=== PATIENT | female | born 1990 | race American Indian/Alaskan Native ===

== ENCOUNTER 2018-09-02 18:24 | Emergency (ER) | payer MEDICARE ==
[2018-09-02 18:32] VITALS: BP 130/94
[2018-09-02] MEDS ORDERED: IBUPROFEN PO ONE (18:55)
--- NOTE | 2018-09-02 19:05 | Emergency Department Report ---
- General Chief complaint: Laceration/Recheck/Suture Stated complaint: RT NIPPLE/INFECTED/PAIN Time Seen by Provider: 09/02/18 18:34 Source: patient Mode of arrival: Ambulatory Limitations: No Limitations - History of Present Illness Initial comments: This is a 28-year-old female nontoxic, well nourished in appearance, no acute signs of distress presents to the ED with c/o of right nipple pain. Patient stated that she had a nipple ring and yesterday especially pulled her nipple ring and now has pain. Patient denies any swelling, pus or drainage. Patient denies any nausea, vomiting, chest pain, shortness of breathe, fever, chills, headache, or stiff neck. Patient denies any allergies or PMH. MD complaint: lesion -: days(s) (1) Severity: mild Severity scale (0 -10): 8 Quality: aching Consistency: constant Improves with: none Worsens with: none Context: none Associated symptoms: denies other symptoms Treatments Prior to Arrival: none - Related Data Previous Rx's Medication Instructions Recorded Last Taken Type Acetaminophen/Codeine [Tylenol 1 tab PO Q6H PRN #12 tab 09/02/18 Unknown Rx /Codeine # 3 tab] Ibuprofen [Motrin] 600 mg PO Q8H PRN #20 tablet 09/02/18 Unknown Rx Sulfamethoxazole/Trimethoprim 1 each PO BID #14 tablet 09/02/18 Unknown Rx [Bactrim DS TAB] Allergies Allergy/AdvReac Type Severity Reaction Status Date / Time No Known Allergies Allergy Verified 09/02/18 18:27 Abscess Boil HPI - HPI Chief Complaint: Laceration/Recheck/Suture Stated Complaint: RT NIPPLE/INFECTED/PAIN Time Seen by Provider: 09/02/18 18:34 Home Medications: Previous Rx's Medication Instructions Recorded Last Taken Type Acetaminophen/Codeine [Tylenol 1 tab PO Q6H PRN #12 tab 09/02/18 Unknown Rx /Codeine # 3 tab] Ibuprofen [Motrin] 600 mg PO Q8H PRN #20 tablet 09/02/18 Unknown Rx Sulfamethoxazole/Trimethoprim 1 each PO BID #14 tablet 09/02/18 Unknown Rx [Bactrim DS TAB] Allergies/Adverse Reactions: Allergies Allergy/AdvReac Type Severity Reaction Status Date / Time No Known Allergies Allergy Verified 09/02/18 18:27 ED Review of Systems ROS: Stated complaint: RT NIPPLE/INFECTED/PAIN Other details as noted in HPI Constitutional: denies: chills, fever Eyes: denies: eye pain, eye discharge, vision change ENT: denies: ear pain, throat pain Respiratory: denies: cough, shortness of breath, wheezing Cardiovascular: denies: chest pain, palpitations Endocrine: no symptoms reported Gastrointestinal: denies: abdominal pain, nausea, diarrhea Genitourinary: denies: urgency, dysuria, discharge Musculoskeletal: denies: back pain, joint swelling, arthralgia Skin: denies: rash, lesions Neurological: denies: headache, weakness, paresthesias Psychiatric: denies: anxiety, depression Hematological/Lymphatic: denies: easy bleeding, easy bruising ED Past Medical Hx - Past Medical History Previous Medical History?: No - Surgical History Past Surgical History?: No - Social History Smoking Status: Never Smoker Substance Use Type: None - Medications Home Medications: Home Medications Medication Instructions Recorded Confirmed Last Taken Type Acetaminophen/Codeine [Tylenol 1 tab PO Q6H PRN #12 tab 09/02/18 Unknown Rx /Codeine # 3 tab] Ibuprofen [Motrin] 600 mg PO Q8H PRN #20 tablet 09/02/18 Unknown Rx Sulfamethoxazole/Trimethoprim 1 each PO BID #14 tablet 09/02/18 Unknown Rx [Bactrim DS TAB] ED Physical Exam - General Limitations: No Limitations General appearance: alert, in no apparent distress - Head Head exam: Present: atraumatic, normocephalic - Eye Eye exam: Present: normal appearance - Neck Neck exam: Present: normal inspection, full ROM - Extremities Exam Extremities exam: Present: normal inspection, full ROM - Back Exam Back exam: Present: normal inspection, full ROM - Neurological Exam Neurological exam: Present: alert, oriented X3 - Psychiatric Psychiatric exam: Present: normal affect, normal mood - Skin Skin exam: Present: warm, dry, intact, normal color. Absent: rash - Other Other exam information: right nipple tenderness with no surrounding redness, swelling, abscess, pus or drainage. Umesh Bansal RN present during exam. ED Course Vital Signs 09/02/18 18:27 Temperature 97.9 F Pulse Rate 80 Respiratory 16 Rate Blood Pressure 130/94 O2 Sat by Pulse 96 Oximetry - Reevaluation(s) Reevaluation #1: 09/02/18 19:05 Patient is speaking in full sentences with no signs of distress noted. ED Medical Decision Making - Medical Decision Making This is a 28-year-old male that presents with possible cellulitis. Patient is stable and was examined by me. There is no induration, fluctuance. No signs of abscess formation. Patient was instructed to observe symptoms of increased redness or swelling and to return to the ER if this does occur. I will discharge patient with Bactrim. Patient was referred to Follow-up with a primary care doctor in 3-5 days or if symptoms worsen and continue return to emergency room as soon as possible. At time of discharge, the patient does not seem toxic or ill in appearance. No acute signs of distress noted. Patient agrees to discharge treatment plan of care. No further questions noted by the patient. Critical care attestation.: If time is entered above; I have spent that time in minutes in the direct care of this critically ill patient, excluding procedure time. ED Disposition Clinical Impression: Cellulitis Qualifiers: Site of cellulitis: other site Qualified Code(s): L03.818 - Cellulitis of other sites Disposition: DC-01 TO HOME OR SELFCARE Is pt being admited?: No Does the pt Need Aspirin: No Condition: Stable Instructions: Cellulitis (ED) Additional Instructions: Follow-up with a primary care doctor in 3-5 days or if symptoms worsen and continue return to emergency room as soon as possible. Prescriptions: Acetaminophen/Codeine [Tylenol /Codeine # 3 tab] 1 tab PO Q6H PRN #12 tab PRN Reason: Pain , Severe (7-10) Ibuprofen [Motrin] 600 mg PO Q8H PRN #20 tablet PRN Reason: Pain Sulfamethoxazole/Trimethoprim [Bactrim DS TAB] 1 each PO BID #14 tablet Referrals: PRIMARY CARE, [Referring] - 3-5 Days ALEK HUGHES MD [Staff Physician] - 3-5 Days [facility] [Outside] - 3-5 Days Forms: Work/School Release Form(ED)
== END 2018-09-02 19:25 | disposition home or self-care (01) ==
LOC: ED 18:24
DX: N61.0 Mastitis without abscess (principal)
CPT/HCPCS: 99282

== ENCOUNTER 2018-09-18 08:17 | Observation (INO) | payer MEDICARE ==
[2018-09-18] MEDS ORDERED: ZOFRAN IV ONE ×2 (08:46→14:29)
[2018-09-18] MEDS ORDERED: MORPHINE IV ONE ×2 (08:46→10:28)
[2018-09-18 09:09] LABS: Basophils # (Auto) 0.1 K/mm3 (0.0-0.1); Basophils % (Auto) 0.7 % (0.0-1.8); Eosinophils # (Auto) 0.1 K/mm3 (0.0-0.4); Eosinophils % (Auto) 0.9 % (0.0-4.3); Lymphocytes # (Auto) 2.3 K/mm3 (1.2-5.4); Lymphocytes % (Auto) 23.1 % (13.4-35.0); Mean Corpuscular HGB Conc 33 % (30-34); Mean Corpuscular Volume 88 fl (79-97); Monocytes # (Auto) 0.6 K/mm3 (0.0-0.8); Platelet Count 217 K/mm3 (140-440); Red Blood Count 4.42 M/mm3 (3.65-5.03); Red Cell Distribution Width 14.4 % (13.2-15.2)
[2018-09-18 09:25] LABS: Alanine Aminotransferase 13 units/L (7-56); Albumin 4.6 g/dL (3.9-5); BUN/Creatinine Ratio 12; Bilirubin,Direct < 0.2 mg/dL (0-0.2); Blood Urea Nitrogen 11 mg/dL (7-17); Calcium 9.3 mg/dL (8.4-10.2); Hemolysis Index 6
[2018-09-18 10:54] LABS: Bilirubin,Urine NEG (Negative); Blood,Urine SM (Negative); Color,Urine Straw (Yellow); Mucus,Urine FEW /HPF; Protein,Urine <15 mg/dL mg/dL (Negative); Urobilinogen,Urine < 2.0 mg/dL (<2.0); WBC,Urine < 1.0 /HPF (0.0-6.0)
[2018-09-18 10:55] LABS: HCG Qualitative,Urine Negative (Negative)
[2018-09-18] MEDS ORDERED: DILAUDID ONE ×2 (13:03→13:47)
--- NOTE | 2018-09-18 13:05 | Emergency Department Report ---
<ALEK PRABHAKAR M - Last Filed: 09/18/18 15:34> ED Abdominal Pain HPI - General Chief Complaint: Abdominal Pain Stated Complaint: ABDOMINAL PAIN Time Seen by Provider: 09/18/18 08:45 Source: patient Mode of arrival: Ambulatory Limitations: No Limitations - History of Present Illness Initial Comments: 28-year-old female was seen here on 09/06. Please note the patient has 2 medical record numbers and it will not show up on this screen. Please refer to medical record number [id number]. The patient was seen by her edi consultant Dr. Garcia associated with [facility] on the . She was told to continue her control pill, back on this Thursday and stay home from work. She was told that she will have a repeat ultrasound in 4-6 weeks. She was given pain medicine. Patient states that despite the pain medicine she is still hurting. She complains of pain in the left lower quadrant of her abdomen which was previously associated with a 3.5 cm complex hemorrhagic cyst. The pain has not really changed. It is just persistent and the patient is tired of being of pain she states. She does not complain of fever chills or vaginal bleeding or discharge. She's had no vomiting. She does complain of nausea. MD Complaint: abdominal pain -: Gradual, week(s) Location: LLQ Radiation: none Migration to: no migration Severity scale (0 -10): 9 Quality: aching Consistency: intermittent Improves With: nothing Worsens With: nothing Context: other (ovarian cyst) Associated Symptoms: denies other symptoms (except for), nausea - Related Data Previous Rx's Medication Instructions Recorded Last Taken Type Acetaminophen/Codeine [Tylenol 1 tab PO Q6H PRN #12 tab 09/02/18 Unknown Rx /Codeine # 3 tab] Ibuprofen [Motrin] 600 mg PO Q8H PRN #20 tablet 09/02/18 Unknown Rx Sulfamethoxazole/Trimethoprim 1 each PO BID #14 tablet 09/02/18 Unknown Rx [Bactrim DS TAB] Allergies Allergy/AdvReac Type Severity Reaction Status Date / Time No Known Allergies Allergy Verified 09/18/18 08:24 ED Review of Systems Constitutional: denies: chills, fever Eyes: denies: eye pain, eye discharge, vision change ENT: denies: ear pain, throat pain Respiratory: denies: cough, shortness of breath, wheezing Cardiovascular: denies: chest pain, palpitations Endocrine: no symptoms reported Gastrointestinal: as per HPI, abdominal pain. denies: nausea, diarrhea Genitourinary: denies: urgency, dysuria, discharge Musculoskeletal: back pain (patient tells me that she has some back swelling left flank. She does not complain of back pain actually.). denies: joint swelling, arthralgia Skin: denies: rash, lesions Neurological: denies: headache, weakness, paresthesias Psychiatric: denies: anxiety, depression Hematological/Lymphatic: denies: easy bleeding, easy bruising ED Past Medical Hx - Past Medical History Previous Medical History?: No - Surgical History Hx Cholecystectomy: Yes Hx Appendectomy: Yes Additional Surgical History: ovarian cyst removal - Social History Smoking Status: Never Smoker Substance Use Type: None - Medications Home Medications: Home Medications Medication Instructions Recorded Confirmed Last Taken Type Acetaminophen/Codeine [Tylenol 1 tab PO Q6H PRN #12 tab 09/02/18 Unknown Rx /Codeine # 3 tab] Ibuprofen [Motrin] 600 mg PO Q8H PRN #20 tablet 09/02/18 Unknown Rx Sulfamethoxazole/Trimethoprim 1 each PO BID #14 tablet 09/02/18 Unknown Rx [Bactrim DS TAB] ED Physical Exam - General Limitations: No Limitations General appearance: alert, in no apparent distress - Head Head exam: Present: atraumatic, normocephalic - Eye Eye exam: Present: normal appearance - ENT ENT exam: Present: mucous membranes moist - Neck Neck exam: Present: normal inspection. Absent: meningismus - Respiratory Respiratory exam: Present: normal lung sounds bilaterally. Absent: respiratory distress - Cardiovascular Cardiovascular Exam: Present: regular rate, normal rhythm. Absent: systolic murmur, diastolic murmur, rubs, gallop - GI/Abdominal GI/Abdominal exam: Present: soft, tenderness (some discomfort to palpation in the left lower quadrant of the abdomen), normal bowel sounds. Absent: distended, guarding, rebound, rigid, organomegaly, mass, bruit, pulsatile mass, hernia - Extremities Exam Extremities exam: Present: normal inspection - Back Exam Back exam: Present: normal inspection - Neurological Exam Neurological exam: Present: alert, oriented X3, CN II-XII intact. Absent: motor sensory deficit - Psychiatric Psychiatric exam: Present: normal affect, anxious - Skin Skin exam: Present: warm, dry, intact, normal color. Absent: rash ED Course - Reevaluation(s) Reevaluation #1: Patient looked comfortable on reexamination. She rated that she is tired of having pain and that her pain medicine doesn't work. I'm awaiting ultrasound results. Preliminary discussion with the tech revealed no evidence of significant fluid in the pelvis. This would be my principal concern related to her ovarian cyst, i.e. rupture. 09/18/18 13:06 Reevaluation #2: Renal ultrasound showed a solid mass. I am going to proceed with CT of the abdomen and pelvis. Patient also states that she is lost about 8 pounds recently. There is concern for a neoplastic process. 09/18/18 13:44 ED Medical Decision Making - Lab Data Result diagrams: 09/18/18 08:49 09/18/18 08:49 Laboratory Results - last 24 hr 09/18/18 09/18/18 09/18/18 08:49 08:49 08:49 WBC 10.1 RBC 4.42 Hgb 13.0 Hct 39.0 MCV 88 MCH 29 MCHC 33 RDW 14.4 Plt Count 217 Lymph % (Auto) 23.1 [place] % (Auto) 6.0 Eos % (Auto) 0.9 Baso % (Auto) 0.7 Lymph # 2.3 [place] # 0.6 Eos # 0.1 Baso # 0.1 Seg Neutrophils % 69.3 Seg Neutrophils # 7.0 Sodium 136 L Potassium 3.8 Chloride 99.9 Carbon Dioxide 22 Anion Gap 18 BUN 11 Creatinine 0.9 Estimated GFR > 60 BUN/Creatinine Ratio 12 Glucose 94 Calcium 9.3 Magnesium 2.00 Total Bilirubin 0.50 Direct Bilirubin < 0.2 AST 16 ALT 13 Alkaline Phosphatase 46 Total Protein 7.5 Albumin 4.6 Albumin/Globulin Ratio 1.6 HCG, Quant < 2 Urine Color Urine Turbidity Urine pH Ur Specific [place] Urine Protein Urine Glucose (UA) Urine Ketones Urine Blood Urine Nitrite Urine Bilirubin Urine Urobilinogen Ur Leukocyte Esterase Urine WBC (Auto) Urine RBC (Auto) U Epithel Cells (Auto) Urine Mucus Urine HCG, Qual 09/18/18 10:46 WBC RBC Hgb Hct MCV MCH MCHC RDW Plt Count Lymph % (Auto) [place] % (Auto) Eos % (Auto) Baso % (Auto) Lymph # [place] # Eos # Baso # Seg Neutrophils % Seg Neutrophils # Sodium Potassium Chloride Carbon Dioxide Anion Gap BUN Creatinine Estimated GFR BUN/Creatinine Ratio Glucose Calcium Magnesium Total Bilirubin Direct Bilirubin AST ALT Alkaline Phosphatase Total Protein Albumin Albumin/Globulin Ratio HCG, Quant Urine Color Straw Urine Turbidity Clear Urine pH 5.0 Ur Specific [place] 1.003 Urine Protein <15 mg/dl Urine Glucose (UA) Neg Urine Ketones Tr Urine Blood Sm Urine Nitrite Neg Urine Bilirubin Neg Urine Urobilinogen < 2.0 Ur Leukocyte Esterase Neg Urine WBC (Auto) < 1.0 Urine RBC (Auto) 1.0 U Epithel Cells (Auto) 2.0 Urine Mucus Few Urine HCG, Qual Negative - Radiology Data Radiology results: report reviewed Ultrasound no free fluid. CT report is pending. Dr. Willard will check. ED Disposition Clinical Impression: Ovarian mass, left, Intractable abdominal pain, History of endometriosis Disposition: OP ADMIT IP TO THIS HOSP Condition: Good Instructions: Abdominal Pain (ED) Referrals: ANASTASIA SANTIAGO MD [Primary Care Provider] - 3-5 Days <CHUN WILLARD - Last Filed: 09/18/18 17:45> ED Review of Systems ROS: Stated complaint: ABDOMINAL PAIN Other details as noted in HPI ED Course Vital Signs 09/18/18 09/18/18 09/18/18 08:25 14:05 14:07 Temperature 98.3 F 98.7 F Pulse Rate 86 86 Respiratory 18 20 20 Rate Blood Pressure 130/64 Blood Pressure 114/76 [Left] O2 Sat by Pulse 98 100 Oximetry 09/18/18 17:15 Temperature Pulse Rate 86 Respiratory 16 Rate Blood Pressure Blood Pressure 111/64 [Left] O2 Sat by Pulse 99 Oximetry - Reevaluation(s) Reevaluation #3: 09/18/18 17:40 CT scan results reviewed and appreciated. I go back to evaluate the patient. The patient tells me that she's been having lower abdominal pain since Thursday, worsening with intensity. She's been having no fevers or chills, no urinary symptoms and no vaginal bleeding. The patient has been given multiple rounds of pain medication, nausea medication. She is still nauseous and still having a lot of abdominal pain. Her lower abdominal region is fairly tender. She is amenable to having a transvaginal ultrasound performed, and I have contacted covering edi consultant, Dr. K Verpile, covering for the patient's private edi consultant, Dr. Juan Schwartz. She is amenable to admitting the patient to the gynecologic service for pain control, nausea control. This is discussed with the patient, who is amenable to this plan of care. We will admit the patient, and given additional pain medication. I will defer to the inpatient team to follow-up on her repeat transvaginal ultrasound. ED Medical Decision Making - Lab Data Result diagrams: 09/18/18 08:49 09/18/18 08:49 - Radiology Data Radiology results: report reviewed, image reviewed Previous ultrasound report is reviewed and appreciated. CT scan interpretation today shows free fluid dependent in the pelvis, with 2 left adnexal cystic masses, may represent ruptured ovarian cyst, no free air. Critical care attestation.: If time is entered above; I have spent that time in minutes in the direct care of this critically ill patient, excluding procedure time. ED Disposition Is pt being admited?: Yes
--- NOTE | 2018-09-18 13:17 | Ultrasound Report ---
FINAL REPORT EXAM: US PELVIC COMPLETE HISTORY: left lower quadrant pain TECHNIQUE: Transabdominal pelvic ultrasound PRIORS: None. FINDINGS: The uterus measures 5.2 x 1.2 x 3.2 cm. No focal uterine mass seen. Endometrium is 1.2 mm. Neither ovary is visualized. There is no abnormal adnexal mass seen. There no free fluid seen. IMPRESSION: Ovaries not visualized. No significant abnormality seen on transabdominal exam.
[2018-09-18] MEDS ORDERED: DILAUDID IV ONE ×2 (13:20→14:29)
--- NOTE | 2018-09-18 13:20 | Ultrasound Report ---
FINAL REPORT EXAM: US RENAL LT HISTORY: left flank pain TECHNIQUE: Ultrasound of the left kidney. PRIORS: None. FINDINGS: Left kidney measures 8.9 x 4.6 x 4.4 cm. There is a possible solid mass in the mid aspect of the left kidney versus renal lobularity. It measures about 2.5cm. Recommend correlation with CT. There is no hydronephrosis. There are no renal calculi seen sonographically. IMPRESSION: Concern for solid mass in mid left kidney. Recommend CT correlation.
[2018-09-18] MEDS ORDERED: PHENERGAN PO ONE (16:03)
--- NOTE | 2018-09-18 16:07 | Cat Scan Report ---
FINAL REPORT EXAM: CT ABDOMEN PELVIS W CON HISTORY: pelvic and renal masses TECHNIQUE: CT abdomen and pelvis performed. Images extend from diaphragm to pubic symphysis. CT of the abdomen and pelvis performed. IV contrast was administered. No oral contrast was administered. PRIORS: None. FINDINGS: The visualized aspects of the lung bases are clear. The patient is status post cholecystectomy. The visualized liver, spleen, pancreas, adrenal glands and kidneys demonstrate no significant abnorma lities. There is no abdominal aortic aneurysm. There is no evidence of intestinal obstruction. The appendix is not specifically identified. There is no free intraperitoneal air. There is some free fluid dependently in the pelvis. There are likely 2 left adnexal cystic masses. Th aziza measure 1.9 and 2.4 cm. The bladder is unremarkable. IMPRESSION: There is some free fluid dependent in the pelvis. There are two left adnexal cystic masses which bc ure about 1.9 and 2.4 cm. Findings could reflect a ruptured ovarian cyst. Ovaries are not seen on the recent transabdominal ultrasound. If further evaluation needed, consider transvaginal ultrasound.
[2018-09-18] MEDS ORDERED: XYLOCAINE CARDIAC IV ONE (16:18)
[2018-09-18] MEDS ORDERED: TORADOL IV ONE (16:18)
[2018-09-18] MEDS ORDERED: KETALAR IV ONE (16:19)
[2018-09-18] MEDS ORDERED: HALDOL IM STA (16:34)
[2018-09-18] MEDS ORDERED: KETAMINE HCL IV ONE ×2 (16:34→17:00)
[2018-09-18] MEDS ORDERED: SUBLIMAZE IV ONE (17:45)
[2018-09-18] MEDS ORDERED: SUBLIMAZE ONE (18:19)
--- NOTE | 2018-09-18 19:21 | Ultrasound Report ---
FINAL REPORT EXAM: US TRANSVAGINAL and ultrasound pelvic duplex Doppler study HISTORY: pelvic pain TECHNIQUE: Transvaginal grayscale, color flow and Doppler waveform imaging of the pelvis was perform ed. Comparison: CT abdomen and pelvis also performed today and transabdominal ultrasound also performed t loren FINDINGS: The uterus measures 6.2 centimeters x 4.3 centimeters x 3.7 centimeters and is normal in appearance. Endometrial thickness measures 6.6 millimeters. The right ovary measures 2.6 centimeters x 1.7 centimeters x 2.3 centimeters, is normal in appearance and contains follicles. Arterial and venous flow is demonstrated in the right ovary utilizing color flow and Doppler waveform imaging. The left ovary measures 2.8 centimeters x 1.8 centimeters x 2.4 centimeters and contains an approxima tely 1.4 centimeter complex cystic structure with internal echoes. Possible hemorrhagic corpus luteum cyst. Arterial and venous flow is demonstrated in the left ovary utilizing color flow and Doppler waveform imaging. There is an approximately 2 centimeter left para ovarian cyst. Free fluid is demonstrated in the pelvis. IMPRESSION: 1. No ultrasound evidence of ovarian torsion. 2. Approximately 1.4 centimeter complex cystic structure left ovary with internal echoes. Possible he morrhagic corpus luteum cyst. 3. Approximately 2 centimeter left para ovarian cyst. 4. Free fluid is demonstrated in the pelvis as was demonstrated on the recent CT.
--- NOTE | 2018-09-18 19:24 | Ultrasound Report ---
FINAL REPORT EXAM: US PELVIS DUPLEX DOPPLER COMP HISTORY: pelvic pain TECHNIQUE: Transvaginal grayscale, color flow and Doppler waveform imaging of the pelvis was perform ed. FINDINGS: The images of this the study are included in the transvaginal study. Please see report of the transva ginal ultrasound performed today. IMPRESSION: 1. No ultrasound evidence of ovarian torsion.
--- NOTE | 2018-09-18 19:53 | History and Physical Report ---
History of Present Illness Date of examination: 09/18/18 Date of admission: 09/18/18 17:45 Chief complaint: Pelvic pain History of present illness: Patient is a 28 year old who presented to the ER complaining of having left flank radiating to her inguinal area and lower abdominal pain since yesterday and nausea. In the ER, her vitals were stable. test was negative. Abdominal CT showed a 1.9 and 2.4 cm ovarian left cysts and mild free fluid. Pelvic sonogram showed the same findings and was negative for ovarian torsion. She has a history of severe endometriosis. She had a sonogram 3 weeks ago which showed a 3.5 cm left ovarian complex cyst. She has been on OC pills. She was given IV morphine which provided little relief. Her Hb is stable. Past History Past Medical History: other (gastritis) READING TEACHER History: other (Endometriosis, ovarian cyst.) Family/Genetic History: none Social history: no significant social history Medications and Allergies Allergies Allergy/AdvReac Type Severity Reaction Status Date / Time No Known Allergies Allergy Verified 09/18/18 08:24 Home Medications Medication Instructions Recorded Confirmed Last Taken Type Acetaminophen/Codeine [Tylenol 1 tab PO Q6H PRN #12 tab 09/02/18 09/18/18 09/18/18 Rx /Codeine # 3 tab] Ibuprofen [Motrin] 600 mg PO Q8H PRN #20 tablet 09/02/18 09/18/18 09/18/18 Rx Sulfamethoxazole/Trimethoprim 1 each PO BID #14 tablet 09/02/18 09/18/18 Unknown Rx [Bactrim DS TAB] - Vital Signs Vital signs: Vital Signs Temp Pulse Resp BP Pulse Ox 98.3 F 86 18 130/64 98 09/18/18 08:25 09/18/18 08:25 09/18/18 08:25 09/18/18 08:25 09/18/18 08:25 Temp Pulse Resp BP Pulse Ox 98.7 F 82 18 112/78 100 09/18/18 14:05 09/18/18 19:34 09/18/18 19:34 09/18/18 19:34 09/18/18 19:34 - Physical Exam Cardiovascular: Normal S1, Normal S2 Lungs: Positive: Clear to auscultation Abdomen: Positive: tenderness (mild, no rebound.) Vulva: both: normal Adnexa: both: normal Results Result Diagrams: 09/19/18 05:07 09/18/18 08:49 Abnormal lab results 09/18/18 Range/Units 08:49 Sodium 136 L (137-145) mmol/L All other labs normal. Ultrasound: report reviewed CT scan - abdomen: report reviewed Assessment and Plan - Patient Problems (1) Ovarian cyst Current Visit: Yes Status: Acute Plan to address problem: Admit to obstetrician gynecologist service. Continue pain meds as needed. (2) Pelvic pain Current Visit: Yes Status: Acute Plan to address problem: Continue pain meds. Serial CBC. Renal sonogram. (3) Endometriosis Current Visit: Yes Status: Acute
[2018-09-18] MEDS ORDERED: SENOKOT PO PRN (19:56)
[2018-09-18] MEDS ORDERED: ALUM-MAG HYDROX-SIMETH 200-200-20MG/5ML PO PRN (19:56)
[2018-09-18] MEDS ORDERED: IBUPROFEN PO PRN (19:56)
[2018-09-18] MEDS ORDERED: TYLENOL PO PRN (19:56)
[2018-09-18 21:16] LABS: Hematocrit 41.2 % (30.3-42.9); Hemoglobin 13.9 gm/dl (10.1-14.3); Mean Corpuscular HGB Conc 34 % (30-34); Mean Corpuscular Volume 88 fl (79-97); Platelet Count 208 K/mm3 (140-440); Red Blood Count 4.67 M/mm3 (3.65-5.03); Red Cell Distribution Width 14.1 % (13.2-15.2)
[2018-09-18] MEDS: DILAUDID IV PRN (21:59)
[2018-09-18] MEDS: LACTATED RINGERS 1,000 ML IV SCH (21:59)
[2018-09-19] MEDS: TORADOL IV PRN ×3 (00:25→17:51)
[2018-09-19] MEDS: DILAUDID IV PRN ×5 (02:30→20:31)
[2018-09-19] MEDS: LACTATED RINGERS 1,000 ML IV SCH ×2 (04:08→22:03)
[2018-09-19] MEDS: ZOFRAN IV PRN ×3 (04:34→17:51)
[2018-09-19 05:25] LABS: Hematocrit 37.8 % (30.3-42.9); Hemoglobin 12.6 gm/dl (10.1-14.3); Mean Corpuscular HGB Conc 33 % (30-34); Mean Corpuscular Volume 88 fl (79-97); Platelet Count 192 K/mm3 (140-440)
[2018-09-19] MEDS ORDERED: LACTATED RINGERS 1,000 ML IV ONE (10:04)
--- NOTE | 2018-09-19 10:20 | Progress Note ---
Assessment and Plan - Patient Problems (1) Ovarian cyst Current Visit: Yes Status: Acute Plan to address problem: Continue pain meds as needed. (2) Pelvic pain Current Visit: Yes Status: Acute Plan to address problem: Continue pain meds. Due to the location and nature of the pain, nephrolothiasis is possible. Will increase hydration and give pain meds as needed. (3) Endometriosis Current Visit: Yes Status: Acute (4) Gastroenteritis Current Visit: Yes Status: Acute Plan to address problem: I told the patient that she may also have gastroenteritis. Will keep her NPO. IV bolus. Zofran. Subjective - Subjective Date of service: 09/19/18 Principal diagnosis: Pelvic pain, ovarian cyst. Interval history: Patient is a 28 year old who was admitted last night for severe pelvic pain and left flank pain. Abdominal CT showed a 1.9 and 2.4 cm ovarian left cysts and mild free fluid. Pelvic sonogram showed the same findings and was negative for ovarian torsion. Renal sonogram was negative. She has a history of severe endometriosis. She had a sonogram 3 weeks ago which showed a 3.5 cm left ovarian complex cyst. She has been on OC pills. She is on dilaudid. She describes her pain as burning and radiating to the left back and flank region. She also has nausea, vomiting and diarrhea. Objective - Vital Signs Latest vital signs: Vital Signs Temp Pulse Pulse Resp BP Pulse Ox 09/19/18 07:15 97.8 F 75 18 117/57 09/19/18 06:29 98.1 F 60 16 108/63 09/19/18 00:42 98.3 F 58 L 16 108/56 09/18/18 20:45 98.2 F 61 20 112/65 100 09/18/18 20:35 72 18 09/18/18 19:34 82 18 112/78 100 09/18/18 17:15 86 16 111/64 99 09/18/18 14:07 20 09/18/18 14:05 98.7 F 86 20 114/76 100 Intake and Output 09/18/18 09/19/18 09/19/18 23:59 07:59 15:59 Intake Total 1008.75 Output Total 200 Balance 808.75 Intake: IV 768.75 Lactated Ringers 1,000 ml 768.75 @ 125 mls/hr IV DIRECT ORQUIDEA Rx#:[id number] Oral 120 Intake, Free Water 120 Output: Urine 200 Void 200 Other: Total, Intake Amount 120 Total, Output Amount 200 Voiding Method Toilet Toilet Weight 56.699 kg - Exam Cardiovascular: Present: Normal S1, Normal S2 Lungs: Present: Clear to auscultation
[2018-09-20] MEDS: ZOFRAN IV PRN ×3 (00:46→19:52)
[2018-09-20] MEDS: TORADOL IV PRN ×2 (00:47→18:10)
[2018-09-20] MEDS: DILAUDID IV PRN ×4 (02:42→21:30)
[2018-09-20] MEDS: LACTATED RINGERS 1,000 ML IV SCH ×3 (05:50→21:36)
[2018-09-20] MEDS ORDERED: MILK OF MAGNESIA PO PRN (21:20)
[2018-09-21] MEDS: DILAUDID IV PRN ×2 (01:40→09:34)
[2018-09-21] MEDS: TORADOL IV PRN (06:30)
[2018-09-21] MEDS: ZOFRAN IV PRN (06:30)
[2018-09-21] MEDS: LACTATED RINGERS 1,000 ML IV SCH (06:37)
--- NOTE | 2018-09-21 10:51 | Discharge Summary ---
Providers - Providers Date of Admission: 09/18/18 17:45 Attending physician: KATHRINE TYSON MD 09/18/18 16:34 Consult to Physician [CONS] Urgent Comment: Consulting Provider: SUNDAY BADILLO Physician Instructions: Reason For Exam: endometriosis Primary care physician: ANASTASIA SANTIAGO Hospitalization Hospital course: 28yo patient with endometriosis presents with LLQ abdominal pain. She received renal and pelvic US and abdominal CT. Significant finding of left renal mass found on renal US (no dimensions noted). Copy given to patient to follow-up with nephrology and PCP within 1-2 weeks. She has had surgery for endometriosis in the past. Her pain flared up when she stopped hormonal medication. She states she has not restarted the medicine. No suspicion of hemorrhagic cyst due to no free fluid found on ultrasound. Patient declines home anti-emetics. She states she has medication at home. 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 Condition at discharge: Good Disposition: DC-01 TO HOME OR SELFCARE Plan - Provider Discharge Summary Activity: no heavy lifting 4 weeks, no strenuous exercise Diet: other (bland diet) Additional instructions: [] Smoking cessation referral if applicable(refer to patient education folder for contact #) [] Refer to [facility] Booklet Call your doctor immediately for: * Fever > 100.5 * Heavy vaginal bleeding ( >1 pad per hour) * Severe persistent headache * Shortness of breath * Reddened, hot, painful area to leg or breast * Drainage or odor from incision. * Keep incision clean and dry at all times and follow doctor's instructions regarding bathing/showering - Follow up plan Follow up: ANASTASIA SANTIAGO MD [Primary Care Provider] - 3-5 Days Forms: Work/School Release Form Pending Studies Follow-up with Nephrology
[2018-09-21 12:12] VITALS: BP 133/87
== END 2018-09-21 12:05 | disposition home or self-care (01) ==
LOC: ED 08:17 → OB 17:45
PROVIDERS: ADMIT Obstetrics & Gynecology; ATTEND Obstetrics & Gynecology
DX: N83.209 Unspecified ovarian cyst, unspecified side (principal); N83.9 Noninflammatory disorder of ovary, fallopian tube and broad ligament, unspecified; R10.2 Pelvic and perineal pain; N80.9 Endometriosis, unspecified; K29.70 Gastritis, unspecified, without bleeding
CPT/HCPCS: 36415; 74177; 76775; 76830; 76856; 80048; 80076; 81001; 81025; 83735; 84702; 85025; 85027; 93975; 96372; 96374; 96375; 96376; 99284; G0378; J1170; J1630; J1885; J2270; J2405; J3010; J7120; Q9967; J2001; Q0169